=== PATIENT | male | born 1975 | race African-American/Black ===

== ENCOUNTER 2022-01-19 14:18 | Emergency (ER) | payer MEDICARE ==
[~2022-01-19] VITALS: Ht 167.6 cm; Wt 89.0 kg
[2022-01-19 14:29] VITALS: BP 159/66
== END 2022-01-19 18:11 | disposition left against medical advice (07) ==
LOC: ER 14:18
DX: Z53.21 Procedure and treatment not carried out due to patient leaving prior to being seen by health care provider (principal)